=== PATIENT | male | born 1955 | race Caucasian/White ===

== ENCOUNTER 2018-02-03 12:51 | Day surgery (SDC) | payer OTHER, SELFPAY ==
[2018-01-27 12:00] VITALS: BMI 29.0
--- NOTE | 2018-02-03 | PATH_ITS ---
[facility] Accession Number: [id number] . 01 Material submitted: . T12 VERTEBRAL BODY . 02 Diagnosis: T12, Vertebral Body, Biopsy: Fragments of bone and bone marrow with trilineage hematopoiesis. No evidence of neoplasm. I/02/05/2018 . 02 Electronically signed: . Dory Rodriguez MD, Pathologist NPI- [id number] . 01 Gross description: . Received in formalin, labeled T12 vertebral body, are multiple fragments of everett-rm hard bone (0.9 x 0.3 x 0.2 cm) with attached hemorrhagic tissue (3.0 x 0.5 x 0.2 cm in aggregate). Decalcified and entirely submitted in cassette A1. ([id number]) /[facility] . 02 Pathologist provided ICD-10: M48.50XA . 02 CPT . 487457, [id number] Performed at: 01 [facility] [address], [place], [place] [id number] MD Bravo Banuelos MD Phone: [phone] Performed at: [facility] [address] [place], [place] [id number] MD Paulo Fulton MD Phone: [phone]
[2018-02-03 14:01] VITALS: BMI 27.3
[2018-02-03 14:11] VITALS: BP 119/74; PULSE 65; RESP 16; TEMP 36.3; O2SAT 98
[2018-02-03] MEDS: LACTATED RINGERS 1,000 ML 42 ML IV (14:24)
--- NOTE | 2018-02-03 15:30 | DI.RAD.S_ITS ---
PROCEDURE: XR T AND L SPINE 2 TO 3 VIEWS INDICATIONS: T12, L2, L4 KYPHOPLASTY TECHNIQUE: 6 views acquired of the thoracolumbar spine. COMPARISON: [facility], CR, XR LUMBAR SPINE 2 OR 3 VIEWS, 01/21/2018, 10:39. FINDINGS: Bones: Intraoperative images were obtained documenting kyphoplasty at T12, L2 and L4 levels. Soft tissues: No suspicious soft tissue calcifications. IMPRESSION: Intraoperative documentation of kyphoplasty thoracolumbar spine Dictated by: Luis Miguel Caban M.D. on 02/04/2018 at 7:45 Approved by: Luis Miguel Caban M.D. on 02/04/2018 at 7:47
--- NOTE | 2018-02-03 15:34 | PM.PREOP ---
Pre-operative Note Interval Note Pre-op Check: Yes History & Physical Reviewed by Physician, Yes Exam Performed and Yes History & Physical exam performed today by Physician Changes: No
[2018-02-03] MEDS: CEFAZOLIN 2 GM/100 ML FROZ.PIGGY IV (16:10)
--- NOTE | 2018-02-03 16:35 | SUR.OPER ---
Prone on spine table, head in foam head support, padded chest and pelvic supports, gel pad at knees, lower legs supported by pillows; nipples, genitalia and toes free of pressure, arms secured on foam padded arm boards at <90 degrees abduction. Tape over blanket at thigh secured to table.
[2018-02-03] MEDS: BUPIVACAINE 0.25% W/ EPI VIAL 50 ML INJ (17:14)
--- NOTE | 2018-02-03 17:24 | PM.OP.1 ---
Operative Date/Time/Diagnoses Date of procedure: 02/03/18 Time of procedure: 16:00 Pre-op diagnosis: 1. T12 thoracic compression fracture 2. L2, L4 lumbar compression fracture Post-op diagnosis: same Procedure & Clinicians Procedure: 1. T12 kyphoplasty 2. L2, L4 kyphoplasty Same procedure as scheduled: Yes Indications: Patient has been having progressively worsening lower thoracic upper lumbar pain. patient had recent history of fall. Patient failed recent conservative management with no improvement of his pain level. Patient has difficulty performing activity of daily living due to his pain. Patient has mechanical pain localized at his T12, L2 and L4 level on examination. After discussing risks benefits of treatment options, patient elected proceed with surgical treatment. Surgeon: Patrizia Vasquez Click Yes if Unassisted: Yes Anesthesia Type: General Operative Notes Closure Type: primary Specimen(s): other (T12 vertebral body) Estimated Blood Loss (mL): 5 Blood products transfused: none Procedure in detail: Patient was seen in the preoperative area. Informed consent was obtained and placed in the chart. Patient was taken to the operative room. Prophylactic antibiotic was given less than half hour prior to skin incision. patient's back was then prepped and draped in sterile fashion time-out was performed at this time. Using AP and lateral C-arm imaging, the pedicles of T12, L2 and L4 vertebrae was localized. A left-sided stab incision was made on all 3 levels. Jamshidi needle was inserted into the T12, L2 and L4 vertebral body through the pedicle using a transpedicular approach. The Dfine kyphoplasty system was used to perform a kyphoplasty by introduced in the flexible osteotome through the portal made using the Jamshidi needle. The osteotome was advanced gradually as the flexible portion was flexed. The advancement was monitored on the AP and lateral C-arm imaging. A biopsy of the vertebral body at T12 level was taken using the trocar and was sent off to pathology. And Dfine kyphoplasty cement introducer was placed into the Jamshidi portal on all 3 levels sequentially. Cement was then injected into the vertebral bodies at all 3 levels. The injection of the cement was observed and monitored using serial C-arm imaging on AP and lateral plane. Approximately 3.5-4 cc of cement was injected at each level. After the cement was injected, and confirmed with AP and lateral C-arm imaging at all 3 levels, a trocar was reinserted into each of the Jamshidi sheath. An each of the Jamshidi trocar was then removed from the vertebral body. Imaging was taken to come firm no trail of cement was left behind. The wound was then closed with Steri-Strips and covered with sterile dressing. Patient was woken up from anesthesia without any issues. Patient was transferred to recovery room in stable condition. Complications: none Condition: stable Disposition: PACU Plan for aftercare: Discharge to home
[2018-02-03 17:34] VITALS: BP 112/63; PULSE 68; RESP 13; TEMP 36.4; O2SAT 96
[2018-02-03 17:39] VITALS: BP 111/76; PULSE 79; RESP 14; O2SAT 94
[2018-02-03 17:44] VITALS: BP 115/49; PULSE 73; RESP 14; O2SAT 94
[2018-02-03 17:49] VITALS: BP 101/54; PULSE 68; RESP 13; O2SAT 93
[2018-02-03 17:53] VITALS: BP 112/69; PULSE 70; RESP 10; TEMP 36; O2SAT 95
[2018-02-03] MEDS: OXYCODONE/ACETAMINOPHEN 5/325 TABLET 2 TAB PO (18:19)
== END 2018-02-03 18:35 | disposition home or self-care (01) ==
PROVIDERS: Family Provider Family Medicine Geriatric Medicine; PCP Family Medicine Geriatric Medicine; Visit Provider Orthopaedic Surgery Orthopaedic Surgery of the Spine
PROC: (CPT 22513; principal; 2018-02-03 15:15)
DX: S22.080A Wedge compression fracture of T11-T12 vertebra, initial encounter for closed fracture (principal); S32.040A Wedge compression fracture of fourth lumbar vertebra, initial encounter for closed fracture; S32.020A Wedge compression fracture of second lumbar vertebra, initial encounter for closed fracture; M54.9 Dorsalgia, unspecified; R53.1 Weakness; M47.26 Other spondylosis with radiculopathy, lumbar region
CPT/HCPCS: 22513; 22515 ×2; 72082; 76001; C1776; J0330; J0690; J1100; J2250; J2405; J2704; J3010

== ENCOUNTER 2018-04-16 11:54 | Day surgery (SDC) | payer OTHER, SELFPAY ==
[2018-04-13 10:30] VITALS: BMI 28.5
--- NOTE | 2018-04-16 | DI.RAD.S_ITS ---
PROCEDURE: XR LUMBAR SPINE 2-3V INDICATIONS: Compression fracture of lumbar spine. TECHNIQUE: 6 intraoperative fluoroscopic views of the lumbar spine were acquired. COMPARISON: None. FINDINGS: Intraoperative fluoroscopic images of lumbar spine shows cement material within multiple lower lumbar spine vertebral bodies likely within L2, L3, L4 and L5 vertebral bodies. IMPRESSION: Fluoroscopy guidance was provided intraoperatively for kyphoplasty of lower lumbar spine vertebral bodies. Dictated by: Bandar William M.D. on 04/16/2018 at 19:20 Approved by: Bandar William M.D. on 04/16/2018 at 19:22
--- NOTE | 2018-04-16 | PATH_ITS ---
[facility] Accession Number: [id number] . 01 Material submitted: . PART A: L3 SPINE BIOPSY PART B: L5 SPINE BIOPSY . 02 Diagnosis: A-B: L3, L5 Spine, Biopsies: Fragments of bone and bone marrow with maturing trilineage hematopoiesis. No evidence of malignancy. MRV/04/21/2018 . 02 Electronically signed: . Gopi Doran MD, PhD, Pathologist NPI- [id number] . 01 Gross description: . (A) Received in formalin, labeled L3 spine biopsy, is a piece of rm hard bone (0.2 x 0.2 x 0.2 cm). Decalcified and submitted intact in cassette A1. (B) Received in formalin, labeled L5 spine biopsy, is a piece of hard red-brown bone (0.4 x 0.2 x 0.2 cm). Decalcified and submitted intact in cassette B1. ([id number]) /[facility] . 02 Pathologist provided ICD-10: S32.038S, S32.058S . 02 CPT . 153116, 693049 Specimen Comment: A duplicate report has been generated due to demographic updates. Performed at: 01 [facility] [address], [place], [place] [id number] MD Bravo Banuelos MD Phone: [phone] Performed at: 02 [facility] [place] [address] [place], [place] [id number] MD Paulo Fulton MD Phone: [phone]
[2018-04-16 14:24] VITALS: BMI 27.9
[2018-04-16 14:40] VITALS: BP 123/88; PULSE 75; RESP 16; TEMP 36.3; O2SAT 97
[2018-04-16 14:42] VITALS: BMI 27.2
[2018-04-16] MEDS: LACTATED RINGERS 1,000 ML 42 ML IV ×2 (14:43→16:09)
--- NOTE | 2018-04-16 15:14 | SUR.OPER ---
Prone on spine table, head in foam head support, chest rolls, gel pad at knees, lower legs supported by pillows; nipples, genitalia and toes free of pressure, arms secured on foam padded arm boards at <90 degrees abduction. Tape over blanket at thigh secured to table.
--- NOTE | 2018-04-16 15:18 | PM.PREOP ---
Pre-operative Note Interval Note Pre-op Check: Yes History & Physical exam performed today by Physician Changes: No
--- NOTE | 2018-04-16 15:22 | PM.HP.1 ---
History of Present Illness Date Patient Seen: 04/16/18 Time Patient Seen: 15:22 Chief complaint: L3 L5 kyphoplasties [id number] Narrative: 62-year-old male with severe back pain. He had spontaneous compression fractures and was treated with a kyphoplasty of T12, L2, and L4 by Dr. Vasquez on 02/03/2018. He still had ongoing pain afterwards although was better. The pain then began escalating again. A new MRI showed new compression fractures of L3 and L5. He also had an old compression fracture of L1 that did not change. He went through therapy on the requirement of his insurance company and finally his kyphoplasties were authorized. No leg pain, all back pain, much worse with any activity. Patient History Medical History Allergic rhinitis (Acute) Closed compression fracture of fourth lumbar vertebra (Acute) Closed compression fracture of second lumbar vertebra (Acute) Closed wedge compression fracture of twelfth thoracic vertebra (Acute) Eczema (Acute) History of colon polyps (Acute) Hyperlipidemia (Acute) Impaired fasting glucose (Acute) Leg weakness (Acute) Low back pain (Acute) Muscle cramps (Acute) Osteoporosis (Acute) Sleep related leg cramps (Acute) Surgical History H/O knee surgery (Acute) History of colonoscopy (Acute) Hx of kyphoplasty (Acute) Family & Social History Family History: Reviewed 04/16/18 by Jose Helton MD Social History: household members spouse Meds Home Medications Medication Instructions Recorded Confirmed Type hydrocodone-acetaminophen [[place]] 1 tab PO Q6H PRN 01/27/18 04/13/18 History baclofen 10 mg PO QID PRN 04/13/18 04/13/18 History diazepam 1 - 2 tab PO Q6H PRN 04/13/18 04/13/18 History hydromorphone [Dilaudid] 2 mg PO Q4H PRN 04/13/18 04/13/18 History pramipexole [Mirapex] 1 - 2 tab PO BEDTIME 04/13/18 04/13/18 History Allergies Allergy/AdvReac Type Severity Reaction Status Date / Time No Known Drug Allergies Allergy Unknown Verified 02/03/18 13:57 [NO KNOWN DRUG ALLERGIES] Review of Systems Cardiovascular Cardiovascular: Denies chest pain Respiratory Respiratory: Denies cough Exam Vital Signs (past 8 hours): - 04/16/18 14:40 Temperature 97.3 F L Pulse Rate 75 Respiratory Rate 16 Blood Pressure 123/88 Pulse Oximetry 97 Oxygen Delivery Method Room Air Const Orientation: alert and oriented x3 Back/Spine/Pelvis Other: Mellissa palpation across the mid to lower lumbar spine. 5/5 motor both lower extremities. 2+ reflexes intact sensation throughout both lower extremities Objective Imaging MRI - lumbar: My impression: MRI from 03/02/2018. Old compression fracture of L1. Compression fractures with kyphoplasties of T12, L2, L4. Acute compression fractures of L3 and L5. Assessment & Plan Plan: Assessment/Plan Narrative: He has spontaneous compression fractures with acute once at L3 and L5. We are going to go ahead with L3 and L5 kyphoplasty. Risks and benefits of surgery were discussed including not limited to medical risk with heart attack, stroke, , DVT, PE, infection, bleeding, scarring, nerve injury with pain numbness weakness paralysis, failure to alleviate symptoms, need for further surgery. He is at high risk for future compression fractures. We are planning on getting him in with Endocrinology in the future.
[2018-04-16] MEDS: CEFAZOLIN 2 GM/100 ML FROZ.PIGGY IV (15:25)
[2018-04-16] MEDS: BUPIVACAINE 0.25% W/ EPI VIAL 50 ML INJ (15:44)
[2018-04-16 16:31] VITALS: BP 132/92; PULSE 76; RESP 14; TEMP 36.1; O2SAT 99
--- NOTE | 2018-04-16 16:34 | PM.OP.1 ---
Operative Date/Time/Diagnoses Date of procedure: 04/16/18 Time of procedure: 16:34 Pre-op diagnosis: L3 and L5 compression fractures Back pain Post-op diagnosis: same Procedure & Clinicians Procedure: L3 and L5 kyphoplasties Same procedure as scheduled: Yes Indications: [age] year old male with intractable pain from compression fractures. They had failed conservative management and requested operative intervention. Risks and benefits of surgery were discussed and appropriate consents were obtained. Surgeon: Jose Helton Click Yes if Unassisted: Yes Anesthesia Type: General Operative Notes Findings: None Closure Type: primary Specimen(s): other (L3 and L5 biopsies) Estimated Blood Loss (mL): 5 Procedure in detail: The patient was brought to the operating room and intubated on the table. They were then rolled over to the well-padded prone position. Time-out was performed. We confirmed positioning with two fluoroscopy views. The back was prepped and draped in the standard sterile fashion. Preoperative antibiotics were given. Using fluoroscopic guidance, the planned incision site was infiltrated with Marcaine with epinephrine and injected down to the entry site of the left pedicles of L3 and L5. A small stab incision was made and we advanced a Jamshiedi needle down the left pedicle into the vertebral body. A bone biopsy was harvested from this and sent to pathology from each level. We then passed the DFine osteotome and opened it up to create a void inside the vertebral bodies. We then began injecting the cement into L3. This was done with frequent fluoroscopy imaging. There was no extravasation. Once we had good fill of the 3 vertebral body the injection was stopped and the trocars were removed. We then went down to L5. Began injecting but there was some extravasation going up just to the bottom of the disc space at L4-5. We stopped and left the solidify. We then added more cement which filled a little bit but did not seem to be spreading enough. Again we used Marcaine and a stab incision on the right and advanced Jamshidi needle down the right pedicle of L5 under fluoroscopy. We again opened up the osteotome to clear up the space. We then began injecting and had excellent fill of the cement into the vertebral body with no extravasation. Trocars removed. Final x-rays were taken. The wound was cleaned. Steri-Strips and sterile dressing were placed. Patient was rolled over, extubated, and brought to recovery without complications. Complications: none Condition: stable Disposition: PACU Plan for aftercare: Outpatient. Activity as tolerated.
[2018-04-16 16:37] VITALS: BP 134/84; PULSE 74; RESP 14; O2SAT 97
[2018-04-16 16:41] VITALS: BP 128/89; PULSE 64; RESP 14; O2SAT 97
[2018-04-16 16:47] VITALS: BP 125/85; PULSE 68; RESP 14; TEMP 36.3; O2SAT 97
[2018-04-16 17:05] VITALS: BP 120/78; PULSE 68; RESP 16; TEMP 36.1; O2SAT 96
--- NOTE | 2018-04-16 17:28 | SUR.PHASEII ---
Late note: Discharge expedited due [place] ferry [place] at 17:50. Denies any discomfort beyond skin soreness. Mentation clear and gait steady when going to rest room. Declined snack but tolerated abdi cate and water without problem. Valuables returned including money, back pack and cane. Shared d/c instructions with friend Ahsan per okay by patient, however d/d materials in possession of patient on leaving.
== END 2018-04-16 17:11 | disposition home or self-care (01) ==
PROVIDERS: PCP Family Medicine Geriatric Medicine; Visit Provider Orthopaedic Surgery
PROC: (CPT 22514; principal; 2018-04-16 15:30)
DX: S32.030A Wedge compression fracture of third lumbar vertebra, initial encounter for closed fracture (principal); S32.050A Wedge compression fracture of fifth lumbar vertebra, initial encounter for closed fracture; M80.88XA Other osteoporosis with current pathological fracture, vertebra(e), initial encounter for fracture; M54.9 Dorsalgia, unspecified
CPT/HCPCS: 22514; 22515; 72100; 76001; C1776; J0690; J1100; J2405; J2704; J3010

== ENCOUNTER → 2020-07-10 12:30 | Day surgery (SDC) | payer MEDICARE, SELFPAY | END | disposition home or self-care (01) | LOC: OR 12:35 | PROVIDERS: PCP Family Medicine; Referring Provider Ophthalmology; Visit Provider Ophthalmology | CPT/HCPCS: J2250 ==

== ENCOUNTER 2020-07-24 10:45 | Day surgery (SDC) | payer MEDICARE, OTHER, SELFPAY ==
[2020-07-24 11:15] VITALS: BP 122/71; PULSE 62; RESP 15; TEMP 35.9; O2SAT 96; BMI 30.5
[2020-07-24] MEDS: PROPARACAINE 0.5% OPHTH SOL 2 DROPS EYE-OP (11:34)
[2020-07-24] MEDS: CATARACT EYE COMPOUND (10 DROPS/SYRINGE) 3 DROPS EYE-OP (11:35)
--- NOTE | 2020-07-24 12:30 | PM.PREOP ---
Pre-operative Note Interval Note History & Physical reviewed/Exam performed by Physician: Yes Changes to H&P: No
--- NOTE | 2020-07-24 12:30 | PM.OP.1 ---
Operative Date/Time/Diagnoses Pre-op diagnosis: Nuclear cataract right eye Procedure & Clinicians Procedure: Cataract Surgery Same procedure as scheduled: Yes Surgeon: Alonzo Singh Anesthesia Type: MAC +/- and Sedation Operative Notes Procedure in detail: Patient brought to the operating suite. Tetracaine drops placed in the right eye. Patient was prepped and draped in sterile manner. Wire lid speculum was placed in the eye. Betadine drops were placed on the eye. This was irrigated. Lidocaine jelly was placed on the eye. A paracentesis port was created with a side-port blade. 0.1 mL 1% preservative free lidocaine was injected into the anterior chamber. The anterior chamber was deepened with viscoelastic. 2.6 mm keratome was used to create a temporal clear corneal incision. Cystotome and Utrata forceps were used to create continuous tear capsulorrhexis. Balanced salt solution was used to hydro dissect the nucleus. The phacoemulsification handpiece was inserted and the nucleus was removed using the stop and chop technique. The irrigation aspiration handpiece was inserted and the remaining cortex was removed. Anterior chamber was deepened with viscoelastic. An Deluna ZCB00 intraocular lens with a power of 19.0 was injected into the capsular bag. Irrigation aspiration handpiece was inserted and the remaining viscoelastic was removed. Incision was hydrated with balanced salt solution and found to be leak free with pressure with Weck-Shirley sponges. 0.1 mL Vigamox injected anterior chamber. 0.3 mL Kenalog 10 mg was injected subconjunctivally. Lid speculum was removed. The patient left the operating room in excellent condition. Complications: none Post-operative Condition: stable Disposition: same day surgery
[2020-07-24] MEDS: TRIAMCINOLONE 50 MG/5 ML VIAL INJ (12:48)
[2020-07-24] MEDS: MOXIFLOXACIN INJ 5 MG/ML VIAL EYE-OP (12:48)
[2020-07-24] MEDS: LIDOCAINE JELLY 2% 5 ML 1 APPLIC TOP (12:48)
[2020-07-24] MEDS: CHONDROIDTIN/SOD HYALURONATE 1.05 ML SYRINGE INTRAOCULA (12:49)
[2020-07-24] MEDS: TETRACAINE 0.5% OPHTH DROPS 4 ML 2 DROPS EYE-OP (12:49)
[2020-07-24] MEDS: PHENYLEPHRINE/LIDOCAINE VIAL (OR) 0.2 ML EYE-OP (12:49)
[2020-07-24] MEDS: BALANCED SALT IRRIG SOLN NO.2 500 ML, EPINEPHrine 1 MG IRR (12:50)
[2020-07-24 13:00] VITALS: BP 105/62; PULSE 65; RESP 17; TEMP 36.2; O2SAT 95
== END 2020-07-24 13:15 | disposition home or self-care (01) ==
PROVIDERS: PCP Family Medicine; Referring Provider Ophthalmology; Visit Provider Ophthalmology
PROC: (CPT 66984; principal; 2020-07-24 12:45)
DX: H25.11 Age-related nuclear cataract, right eye (principal)
CPT/HCPCS: 66984; J0171; J2250; J3010; J3301

== ENCOUNTER 2020-08-07 08:58 | Day surgery (SDC) | payer MEDICARE, OTHER, SELFPAY ==
[2020-08-07] MEDS: PROPARACAINE 0.5% OPHTH SOL 2 DROPS EYE-OP (10:16)
[2020-08-07] MEDS: CATARACT EYE COMPOUND (10 DROPS/SYRINGE) 3 DROPS EYE-OP (10:16)
[2020-08-07 10:23] VITALS: BP 120/72; PULSE 59; RESP 16; TEMP 36.2; O2SAT 100; BMI 30.5
--- NOTE | 2020-08-07 10:56 | P.OP_ITS ---
Operative Date/Time/Diagnoses Pre-op diagnosis: Nuclear Cataract Left eye Post-op diagnosis: same Procedure & Clinicians Same procedure as scheduled: Yes Surgeon: Alonzo Singh Anesthesia Type: MAC +/- and Sedation Operative Notes Procedure in detail: Patient brought to the operating suite. Tetracaine drops placed in the left eye. Patient was prepped and draped in sterile manner. Wire lid speculum was placed in the eye. Betadine drops were placed on the eye. This was irrigated. Lidocaine jelly was placed on the eye. A paracentesis port was created with a side-port blade. 0.1 mL 1% preservative free lidocaine was injected into the anterior chamber. The anterior chamber was deepened with viscoelastic. 2.6 mm keratome was used to create a temporal clear corneal incision. Cystotome and Utrata forceps were used to create continuous tear capsulorrhexis. Balanced salt solution was used to hydro dissect the nucleus. The phacoemulsification handpiece was inserted and the nucleus was removed using the stop and chop technique. The irrigation aspiration handpiece was inserted and the remaining cortex was removed. Anterior chamber was deepened with viscoe lastic. An Deluna ZCB00 intraocular lens with a power of 19.0 was injected into the capsular bag. Irrigation aspiration handpiece was inserted and the remaining viscoelastic was removed. Incision was hydrated with balanced salt solution and found to be leak free with pressure with Weck-Shirley sponges. 0.1 mL Vigamox injected anterior chamber. 0.3 mL Kenalog 10 mg was injected subconjunctivally. Lid speculum was removed. The patient left the operating room in excellent condition. Complications: none Post-operative Condition: stable Disposition: same day surgery
--- NOTE | 2020-08-07 10:56 | PM.PREOP ---
Pre-operative Note Interval Note History & Physical reviewed/Exam performed by Physician: Yes Changes to H&P: No
--- NOTE | 2020-08-07 10:56 | PM.PREOP ---
Pre-operative Note Interval Note History & Physical reviewed/Exam performed by Physician: Yes Changes to H&P: No
[2020-08-07] MEDS: TRIAMCINOLONE 50 MG/5 ML VIAL INJ (11:32)
[2020-08-07] MEDS: LIDOCAINE JELLY 2% 5 ML 1 APPLIC TOP (11:32)
[2020-08-07] MEDS: MOXIFLOXACIN INJ 5 MG/ML VIAL EYE-OP (11:32)
[2020-08-07] MEDS: PHENYLEPHRINE/LIDOCAINE VIAL (OR) 0.2 ML EYE-OP (11:32)
[2020-08-07] MEDS: BALANCED SALT IRRIG SOLN NO.2 500 ML, EPINEPHrine 1 MG IRR (11:33)
[2020-08-07] MEDS: TETRACAINE 0.5% OPHTH DROPS 4 ML 2 DROPS EYE-OP (11:33)
[2020-08-07] MEDS: CHONDROIDTIN/SOD HYALURONATE 1.05 ML SYRINGE INTRAOCULA (11:33)
[2020-08-07 11:45] VITALS: BP 113/72; PULSE 58; RESP 15; TEMP 36.7; O2SAT 95
== END 2020-08-07 11:58 | disposition home or self-care (01) ==
PROVIDERS: PCP Family Medicine; Referring Provider Ophthalmology; Visit Provider Ophthalmology
PROC: (CPT 66984; principal; 2020-08-07 11:15)
DX: H25.12 Age-related nuclear cataract, left eye (principal)
CPT/HCPCS: 66984; J0171; J2250; J3010; J3301

== ENCOUNTER → 2020-08-23 10:09 | Outpatient (CLI) | payer MEDICARE, SELFPAY ==
[2020-08-23] MEDS: COVID-19 VACC, Ad26(JANSSEN)/PF 0.5 ML IM (10:19)
== END ==
PROVIDERS: PCP Family Medicine; Visit Provider Internal Medicine
DX: Z23 Encounter for immunization (principal)
CPT/HCPCS: 0031A; 91303